=== PATIENT | male | born 1965 | race Caucasian/White ===

== ENCOUNTER → 2022-08-10 13:44 | Outpatient (CLI) | payer OTHER, SELFPAY ==
--- NOTE | 2022-08-10 | DI.ECHO.S_ITS ---
[place] +---------+ [facility] +---------+ : : [address] : : : : [address] : : : : [id number] : : : : Phone: [phone]+ Echocardiogram Report + + :Name: DOMINGA RIGGS Study Date: 08/10/2022 Height: 75 in : :[facility] ReadingLocation: Weight: 235 lb : : Gender: Male BSA: 2.4 m2 : :: 1965 Age: 57 yrs BP: 137/82 mmHg: :Reason For Study: AORTIC STENOSIS : :Ordering Physician: HARINDER, : :MCKENZIE Performed By: Jossie Gray : :Referring: MCKENZIE LUO : + + Interpretation Summary 1) Mildly increased left ventricular thickness (concentric) with normal size, normal wall motion, and systolic function (EF 55-60%). 2) Normal right ventricular size and function. 3) There is severe aortic stenosis (valve area 0.7cm2, mean gradient 43mm Hg, severity ratio 0.19). 4) Compared to the Echo done 07/29/2021, no significant change. Procedure: A two-dimensional transthoracic echocardiogram with color flow and Doppler was performed. The study quality was technically adequate. Comparison is made with the echocardiogram of 07/29/2021. The patient was in sinus rhythm with heart rates between 63-87 bpm during the exam. Left Ventricle: The left ventricle is normal in size. There is mild concentric left ventricular hypertrophy. A false chord is noted (normal variant). The ejection fraction is estimated to be 55-60%. Left ventricular systolic function appears normal without focal wall motion abnormalities. Diastolic parameters suggest a relaxation abnormality of the left ventricle, consistent with probable normal filling pressures. Right Ventricle: The right ventricle is normal in size and function. Atria: The left atrial size is normal. Right atrial size is normal. There is no Doppler evidence for an interatrial shunt. Mitral Valve: The mitral valve leaflets appear mildly thickened, but open well. There is mild mitral regurgitation. Aortic Valve: The aortic valve is severely calcified. There is severely reduced leaflet mobility. The peak aortic velocity is 4.0 m/sec. The aortic valve mean gradient is 43 mmHg. The calculated aortic valve area is 0.72 cm2. There is severe aortic stenosis. No aortic regurgitation is present. Tricuspid Valve: The tricuspid valve is normal in structure and function. There is mild tricuspid regurgitation. The right ventricular systolic pressure is estimated to be at least 26 mmHg based on an estimated right atrial pressure of 3 mm Hg. Pulmonic Valve: The pulmonic valve is not well visualized. There is no pulmonic valvular regurgitation. Great Vessels: The aortic root is normal size. The dimensions of the ascending aorta are normal. The IVC is of normal diameter and collapses greater than 50% with a sniff. This suggests a low right atrial pressure of 3 mm Hg. Pericardium/ Pleura There is no pericardial effusion. There is no pleural effusion. MMode/2D Measurements & Calculations LVIDd: 5.2 cm LVOT diam: 2.3 cm LVIDs: 3.2 cm Ao root diam: 3.9 cm FS: 37.9 % asc Aorta Diam: 3.4 cm IVSd: 1.2 cm Ao Arch Diam (Prox Trans): 2.5 cm LVPWd: 1.0 cm LV winkler. diameter/BSA (cm/m^2): 2.2 LV sys. diameter/BSA (cm/m^2): 1.4 LA A2 area: 22.7 cm2 RA long axis: 5.0 cm LA A4 area: 18.9 cm2 RA area: 13.6 cm2 LA length (vol): 6.2 cm RA vol: 31.3 ml LA vol: 58.5 ml RA : 13.3 ml/m2 LA vol index: 24.9 ml/m2 IVC diam: 1.8 cm RVD1 (basal): 3.3 cm RVD2 (mid): 2.7 cm TAPSE: 1.8 cm Doppler Measurements & Calculations Ao V2 max: 401.5 cm/sec LVOT Max Desmond: 68.2 cm/sec Ao V2 mean: 301.3 cm/sec LV V1 max P.9 mmHg Ao max P.3 mmHg LV V1 VTI: 16.7 cm Ao mean P.4 mmHg LETTY(I,D): 0.81 cm2 Ao V2 VTI: 87.8 cm LETTY(V,D): 0.72 cm2 sev ratio: 0.19 LETTY indexed to BSA (cm^2/m^2): 0.34 MV E max desmond: 42.6 cm/sec TR max desmond: 237.6 cm/sec MV A max desmond: 82.2 cm/sec TR max P.6 mmHg MV E/A: 0.52 PA V2 max: 101.7 cm/sec Med Peak E' Desmond: 5.2 cm/sec PA V2 mean: 74.5 cm/sec E/E' med: 8.1 PA mean P.4 mmHg Lat Peak E' Desmond: 5.7 cm/sec PA pr(Accel): 46.5 mmHg E/E' lat: 7.5 E/e' average: 7.8 MV dec time: 0.34 sec SV(LVOT): 70.9 ml Reading Physician:03:49 PM
== END ==
PROVIDERS: Referring Provider Internal Medicine Cardiovascular Disease; Visit Provider Internal Medicine Cardiovascular Disease
DX: I08.3 Combined rheumatic disorders of mitral, aortic and tricuspid valves (principal)
CPT/HCPCS: 93306

== ENCOUNTER 2024-01-25 17:32 | Emergency (ER) | payer OTHER, SELFPAY ==
[2024-01-25] VITALS (14 sets, daily range): BP systolic 92–134; BP diastolic 66–78; PULSE 97–112; RESP 14–25; TEMP 36.7; O2SAT 97–99; BMI 28.3
--- NOTE | 2024-01-25 17:57 | DI.RAD.S_ITS ---
PROCEDURE: XR CHEST 1V INDICATIONS: chest pain TECHNIQUE: One view of the chest was acquired. COMPARISON: None. FINDINGS: Surgical changes and devices: Median sternotomy wires are present and appear intact.. Lungs and pleura: Lungs are clear. No pleural effusions or pneumothorax. Mediastinum: Mediastinal contours appear normal. Heart size is normal. Bones and chest wall: No suspicious bony lesions. Overlying soft tissues appear unremarkable. IMPRESSION: No acute cardiopulmonary abnormalities or focal consolidation. Dictated by: Rico Farfan M.D. on 01/25/2024 at 19:20 Approved by: Rico Farfan M.D. on 01/25/2024 at 19:21
--- NOTE | 2024-01-25 18:03 | EKG_ITS ---
[place] [id number] [place] [id number] Test Date: 2024-01-25 Pat Name: Star Nair Department: [facility] Room: Gender: Male Coconut Boiler: Wilmer VARGAS RN : 1965 Requested By: Order Number: [id number] Reading MD: Eliseo Fields Measurements Intervals [place] Rate: 106 P: 56 HI: 158 QRS: -57 QRSD: 108 T: 70 QT: 366 QTc: 486 Interpretive Statements Sinus tachycardia Left anterior fascicular block Anterior infarct , age undetermined Electronically Signed On 01-26-2024 19:03:49 PST by Eliseo Fields
[2024-01-25 18:23] LABS: Add Manual Diff / Slide Review NO; Basophils Absolute Auto 100 /uL (0-100); Basophils Percent Auto 0.4 % (0-2); Eosinophils Absolute Auto 200 /uL (0-450); Hematocrit 38.6 % (41-53); Hemoglobin 12.8 g/dL (13.5-17.5); Lymphocytes Absolute Auto 2700 /uL (1100-4500); Lymphocytes Percent Auto 16.8 % (25-40); Mean Corpuscular HGB Conc 33.2 % (30-36); Mean Corpuscular Hemoglobin 28.6 PG (26-34); Monocytes Absolute Auto 800 /uL (0-900); Neutrophils Absolute Auto 12300 /uL (1500-7000); Neutrophils Percent Auto 76.8 % (50-75); Platelet Count 223 X10^3/uL (150-400); Red Blood Cell Count 4.48 X10^6/uL (4.5-5.9); Red Cell Distribution Width 14.6 % (11.6-14.8)
[2024-01-25 18:29] LABS: Prothrombin Time 82.5 SECONDS (9.4-12.5)
[2024-01-25 18:32] LABS: PTT Partial Thromboplastin Tim 51 SECONDS (25.1-36.5)
[2024-01-25 18:33] LABS: Alanine Aminotransferase 82 IU/L (<50); Albumin 4.3 g/dL (3.5-5.0); Albumin Globulin Ratio 1.3 (1.0-2.8); Alkaline Phosphatase 87 U/L (38-126); Aspartate Aminotransferase 57 IU/L (17-59); BUN Creatinine Ratio 20.6 (6-22); Blood Urea Nitrogen 22 mg/dL (9-20); Calcium 9.3 mg/dL (8.4-10.2); Carbon Dioxide 20 mmol/L (22-32); Chloride 106 mmol/L (98-107); Creatine Kinase 64 U/L (55-170); Estimated Glomerular Filt Rate > 60 mL/min (>60); Globulin 3.3 g/dL (1.7-4.1); Glucose 111 mg/dL (80-110); HEMOLYSIS < 15 (0-50); Lipase 199 U/L (23-300); Potassium 4.4 mmol/L (3.4-5.1); Sodium 136 mmol/L (137-145); Total Protein 7.6 g/dL (6.3-8.2)
[2024-01-25 18:35] LABS: INR 7.7 (0.9-1.3)
[2024-01-25 18:44] LABS: NT-proBNP (BNP-Adult 18+) 1070 pg/mL (<125); Troponin I 0.098 ng/mL (0.01-0.034)
--- NOTE | 2024-01-25 22:55 | ED.RECABL ---
HPI - Recheck/Abnormal Lab/Rx General Chief Complaint: Recheck/Abnormal Lab/Rx Stated Complaint: Supertherapeutic INR, High Stroke Risk Time Seen by Provider: 01/25/24 22:54 Source: patient Mode of arrival: Wheelchair History of Present Illness HPI narrative: Patient is a 58-year-old male status post aortic valve replacement with complication and now residing it [facility] presenting today with dizziness. He reports that he stayed at [facility] for 8 days was doing well he was independent doing his daily living activities however due to complications and significant surgery he was sent to rehab. He has been at rehab for the last 3 days. He reports since being there he says every time he sits up stands up he gets extremely dizzy lightheaded feels like he might black out but does not. If he sits on the side of the bed for about 4-5 minutes symptoms resolved. He has no headache nausea or vomiting no numbness tingling or weakness. No chest pain or fever. He had an INR checked today by P[facility] it showed 7.7. Staff members were concerned and sent him here to the ED for further evaluation. Patient has been up to the restroom he denies dizziness now. He is eating and drinking appropriately urinating regularly. Related Data Allergies Allergy/AdvReac Type Severity Reaction Status Date / Time No Known Drug Allergies Allergy Verified 01/26/24 01:19 Exam Initial Vital Signs Initial Vital Signs: Vital Signs Temperature 98.0 F 01/25/24 17:33 Pulse Rate 106 H 01/25/24 17:33 Respiratory Rate 16 01/25/24 17:33 Blood Pressure 105/69 01/25/24 17:33 Pulse Oximetry 99 01/25/24 17:33 Oxygen Delivery Method Room Air 01/25/24 17:33 GENERAL: Well-appearing, well-nourished and in no acute distress. HEENT: Head atraumatic,EOMI, pupils reactive, face symmetric, moist mucous membranes CARDIOVASCULAR: Regular rate and rhythm without murmurs, rubs or gallops. RESPIRATORY: Breath sounds equal bilaterally, no wheezes rales or rhonchi. ABDOMEN: Soft, nontender. Normoactive bowel sounds all 4 quadrants. No guarding or rebound. EXTREMITIES: Normal range of motion, no clubbing or edema. Neurovascularly intact NEUROLOGICAL: Alert and oriented x4.Normal gait and speech. Cranial nerves II through XII grossly intact. Criminal Analyst strength equal bilaterally he no facial droop no aphasia SKIN: Chest incision clean and dry healing well no evidence of infection or dehiscence Course Orders Ordered: Discontinued Medications Phytonadione (Phytonadione (Vit K1) 5 Mg Tablet) 5 mg PO NOW ONE Stop: 01/25/24 23:56 Last Admin: 01/26/24 00:11 Dose: 5 mg Documented By: AB Vital Signs Vital signs: Vital Signs - 8 hr 01/26/24 00:48 01/26/24 00:48 01/26/24 01:00 Pulse Rate 101 H Respiratory Rate 19 Blood Pressure 131/71 128/73 Pulse Oximetry 98 Oxygen Delivery Method 01/26/24 01:00 01/26/24 01:30 01/26/24 01:30 Pulse Rate 96 H 92 H Respiratory Rate 16 16 Blood Pressure 133/63 Pulse Oximetry 97 96 Oxygen Delivery Method 01/26/24 02:00 01/26/24 02:00 01/26/24 02:30 Pulse Rate 93 H Respiratory Rate 16 Blood Pressure 134/70 125/64 Pulse Oximetry 98 Oxygen Delivery Method 01/26/24 02:30 01/26/24 03:00 01/26/24 03:00 Pulse Rate 91 H 89 Respiratory Rate 15 13 Blood Pressure 147/70 H Pulse Oximetry 91 95 Oxygen Delivery Method 01/26/24 03:30 01/26/24 03:30 01/26/24 04:00 Pulse Rate 91 H Respiratory Rate 18 Blood Pressure 125/77 119/71 Pulse Oximetry 94 Oxygen Delivery Method 01/26/24 04:00 Pulse Rate 93 H Respiratory Rate 16 Blood Pressure Pulse Oximetry 93 Oxygen Delivery Method Room Air MDM - Recheck/Abnormal Lab/Rx Lab Data 01/25/24 18:14 01/25/24 18:14 Labs: Lab Results 01/25/24 Range/Units 18:14 WBC 16.0 H (4.5-11.0) X10^3/uL RBC 4.48 L (4.5-5.9) X10^6/uL Hgb 12.8 L (13.5-17.5) g/dL Hct 38.6 L (41-53) % MCV 86.0 (80-100) fL MCH 28.6 (26-34) PG MCHC 33.2 (30-36) % RDW 14.6 (11.6-14.8) % Plt Count 223 (150-400) X10^3/uL Neut % (Auto) 76.8 H (50-75) % Lymph % (Auto) 16.8 L (25-40) % [place] % (Auto) 5.0 (3-14) % Eos % (Auto) 1.0 L (2-4) % Baso % (Auto) 0.4 (0-2) % Neut # (Auto) 29253 H (9671-4075) /uL Lymph # (Auto) 2700 (2777-1082) /uL [place] # (Auto) 800 (0-900) /uL Eos # (Auto) 200 (0-450) /uL Baso # (Auto) 100 (0-100) /uL PT 82.5 H (9.4-12.5) SECONDS INR 7.7 H* (0.9-1.3) APTT 51 H (25.1-36.5) SECONDS Sodium 136 L (137-145) mmol/L Potassium 4.4 (3.4-5.1) mmol/L Chloride 106 (98-107) mmol/L Carbon Dioxide 20 L (22-32) mmol/L BUN 22 H (9-20) mg/dL Creatinine 1.07 (0.66-1.25) mg/dL Estimated GFR > 60 (>60) mL/min BUN/Creatinine Ratio 20.6 (6-22) Glucose 111 H (80-110) mg/dL Calcium 9.3 (8.4-10.2) mg/dL Magnesium 2.0 (1.6-2.3) mg/dL Total Bilirubin 1.0 (0.2-1.3) mg/dL AST 57 (17-59) IU/L ALT 82 H (<50) IU/L Alkaline Phosphatase 87 (38-126) U/L Total Creatine Kinase 64 (55-170) U/L Troponin I 0.098 H (0.01-0.034) ng/mL NT-Pro-B Natriuret Pep 1070 H (<125) pg/mL Total Protein 7.6 (6.3-8.2) g/dL Albumin 4.3 (3.5-5.0) g/dL Globulin 3.3 (1.7-4.1) g/dL Albumin/Globulin Ratio 1.3 (1.0-2.8) Lipase 199 (23-300) U/L Imaging Data Chest x-ray: Radiologist's Impression: PROCEDURE: XR CHEST 1V INDICATIONS: chest pain TECHNIQUE: One view of the chest was acquired. COMPARISON: None. FINDINGS: Surgical changes and devices: Median sternotomy wires are present and appear intact.. Lungs and pleura: Lungs are clear. No pleural effusions or pneumothorax. Mediastinum: Mediastinal contours appear normal. Heart size is normal. Bones and chest wall: No suspicious bony lesions. Overlying soft tissues appear unremarkable. IMPRESSION: No acute cardiopulmonary abnormalities or focal consolidation. Dictated by: Rico Farfan M.D. on 01/25/2024 at 19:20 Approved by: Rico Farfan M.D. on 01/25/2024 at 19:21 ECG Data Attestation: I personally reviewed and interpreted this ECG as follows: Interpretation: Normal sinus rhythm rate 106 IN interval 150 QRS 108 QTC 486 [facility] Narrative Medical decision making narrative: [facility] CC: Dizziness Complicating co-morbidities: Aortic valve replacement Differential considered: In orthostatic hypotension Exam documented above, pertinent findings include: Awake alert no focal deficits systems analyst engineer strength equal no facial droop Lab Test results independently reviewed as above. Pertinent findings: INR 7.7 WBC 16 hemoglobin 12.8 hematocrit 30.6 platelets 222 Sodium 136 potassium 4.4 chloride 106 carbon dioxide 20 BUN 22 creatinine 1.0 Troponin 0.098, [id number] Independently reviewed EKG as above no ischemia Imaging studies independently reviewed: Head CT negative Treatments: None Re-evaluations: Patient does have positive orthostatics suspect that is what is making him dizzy Discussion: Patient does positive orthostatics does not appear to be acutely dehydrated he has a creatinine of 1.0 BUN 22. I do not have an updated medication list new medication could also be contributing to this. He is found to have an elevated INR of 7.7 but no active or life-threatening bleed. He is given 1 dose of vitamin K recommended to hold Coumadin and recheck daily. Patient ultimately had to stay the night in the emergency department multiple attempts to get patient back to [facility] but unable to give report per nursing. Discharge Plan Departure Patient Disposition: Home Clinical Impression: Orthostatic hypotension, Elevated INR Instructions: Orthostatic Hypotension Activity Restrictions/Additional Instructions: *You have been diagnosed with orthostatic hypotension elevated INR *What to do: You are dizzy when you sit and stand up likely due to your blood pressure. It decreases. This may or may not be related some of your new medication. Please follow-up with your milling/polishing operator and physicians in regards to possibly adjusting her medication. INR today is 7.7 you were given 5 mg of vitamin K Please hold Coumadin and have INR checked in 1-2 days. Goal is for INR to be 2.5-3.5 please discuss with your milling/polishing operator *Continue to take medications as directed *Follow up with your primary care provider in 2-3 days or call [phone] *Return to ER if you should have passing out chest pain weakness [or] any new, worsening or concerning symptoms Stand Alone Forms: Patient Portal/API/Survey
--- NOTE | 2024-01-25 23:08 | DI.CT.S_ITS ---
PROCEDURE: CT HEAD/BRAIN WO CON INDICATIONS: dizzy INR 7.7 TECHNIQUE: Noncontrast 4.5 mm thick angled axial sections acquired from the foramen magnum to the vertex, with coronal and sagittal reformats. For radiation dose reduction, the following was used: automated exposure control, adjustment of mA and/or kV according to patient size. COMPARISON: None. FINDINGS: Image quality: Diagnostic. CSF spaces: Basal cisterns are patent. No extra-axial fluid collections. The ventricles are symmetric in size and shape. Brain: No intracranial bleeds or masses. There is cerebral volume loss for age, with resultant ventricular and sulcal prominence. There are periventricular and deep white matter chronic small vessel ischemic changes. There is intracranial internal carotid artery atherosclerosis. Skull and face: Calvarium and visualized facial bones appear intact, without suspicious lesions. Sinuses: Visualized sinuses and mastoids are clear. IMPRESSION: No CT evidence of acute intracranial process. Age-appropriate cerebral cortical volume loss and chronic microvascular ischemic changes. Dictated by: Isela Marin M.D. on 01/25/2024 at 23:39 Approved by: Isela Marin M.D. on 01/25/2024 at 23:41
[2024-01-26] VITALS (10 sets, daily range): BP systolic 119–147; BP diastolic 63–77; PULSE 89–102; RESP 13–20; O2SAT 91–98
[2024-01-26] MEDS: PHYTONADIONE (VIT K1) 5 MG TABLET PO (00:11)
--- NOTE | 2024-01-26 07:08 | PC.NURSE ---
Left message for [facility] to call ER back at [phone].
--- NOTE | 2024-01-26 07:49 | PC.NURSE ---
Assumed care of pt at 0700. Spoke with Deborah TURNER at 0740 to give report and request that they come nut picker pt. RN stated that transport is not available. Deborah RN stated that she is concerned that his INR is too high after having valve replacement. Discussed at length doctor's dc instructions to hold warfarin and to f/u with general dentist/owner and pcp. Also went over labs, meds, tests and interventions performed in the ED. Deborah RN expressed discontent with care pt received while in the ED and stated that we need to speak with general dentist/owner to assure that pt is not at risk for bleeding. Explained to deborah TURNER that the emergency room physician evaluated the pt and that they are medically cleared to go back to facility. Deborah RN abruptly hung up phone and we are still awaiting the arrival of Deborah staff to transport patient back to facility. Breakfast tray ordered from dietary.
== END 2024-01-26 08:20 | disposition home or self-care (01) ==
PROVIDERS: Emergency Medicine; Emergency Provider Emergency Medicine
DX: I95.1 Orthostatic hypotension (principal); R79.1 Abnormal coagulation profile; R07.9 Chest pain, unspecified; Z95.2 Presence of prosthetic heart valve; R00.0 Tachycardia, unspecified; I44.4 Left anterior fascicular block
CPT/HCPCS: 36415; 70450; 71045; 80053; 82550; 83690; 83735; 83880; 84484; 85025; 85610; 85730; 93005; 99284